=== PATIENT | female | born 1975 | race Caucasian/White ===

== ENCOUNTER 2017-09-16 07:40 | Emergency (ER) | payer MEDICAID ==
[~2017-09-16] VITALS: Ht 162.6 cm; Wt 65.0 kg
[~2017-09-16 07:40] MED LIST: AMIT25TA9 PO; MECL-127 PO; ONDA4TAB5 PO
[2017-09-16] MEDS ORDERED: ONDANSETRON HCL 4MG/2ML VIAL IV STA (08:36)
[2017-09-16] MEDS ORDERED: KETOROLAC 30MG/ML VIAL IV STA (08:36)
[2017-09-16] MEDS ORDERED: SODIUM CHLORIDE 0.9% 1,000 ML IV ONE (08:36)
[2017-09-16 09:02] LABS: BASOPHILS % 0.4 % (0.0-2.0); EOSINOPHILS % 0.8 % (0.0-5.0); HEMATOCRIT. 39.5 % (36.0-48.0); HEMOGLOBIN. 13.3 g/dL (12.0-16.0); LYMPHOCYTES % 8.6 % (20.0-50.0); MEAN CORPUSCULAR HEMOGLOBIN 29.9 pg (28.0-32.0); MEAN CORPUSCULAR VOLUME 88.8 fL (81.0-99.0); NEUTROPHILS % 85.2 % (40.0-76.0); PLATELET 256 x1000/uL (130-400); RED BLOOD CELL COUNT 4.44 mill/uL (4.2-5.4); RED CELL DISTRIBUTION WIDTH 13.1 % (11.6-14.6)
[2017-09-16 09:02] LABS: CLARITY URINE CLOUDY (CLEAR); COLOR URINE YELLOW (YELLOW); KETONES URINE TRACE (NEGATIVE); LEUKOCYTE ESTERASE URINE TRACE (NEGATIVE); NITRITE URINE NEGATIVE (NEGATIVE); OCCULT BLOOD URINE 3+ (NEGATIVE); PROTEIN URINE TRACE (NEGATIVE); SPECIFIC GRAVITY URINE 1.026 (1.005-1.030); UROBILINOGEN URINE 0.2 E.U./dL (0.2-1.0)
[2017-09-16 09:06] LABS: CHLORIDE 106 mEq/L (98-107)
[2017-09-16 09:30] LABS: HCG SCREEN NEGATIVE
[2017-09-16 11:41] VITALS: BP 99/63
== END 2017-09-16 11:47 | disposition home or self-care (01) ==
LOC: ER 07:58
DX: N39.0 Urinary tract infection, site not specified (principal); R11.2 Nausea with vomiting, unspecified
CPT/HCPCS: 36415; 71045; 80053; 81003; 83690; 84703; 85025; 87804; 96361; 96374; 96375; 99285; J1885; J2405; J7030; Z7610

== ENCOUNTER 2018-01-24 07:22 | Emergency (ER) | payer SELFPAY ==
[~2018-01-24] VITALS: Ht 160 cm; Wt 53.0 kg
[2018-01-24] MEDS ORDERED: KETOROLAC 30MG/ML VIAL IV ONE (08:15)
[2018-01-24] MEDS ORDERED: METOCLOPRAMIDE HCL 10MG/2ML VIAL IV ONE (08:15)
[2018-01-24] MEDS ORDERED: SODIUM CHLORIDE 0.9% 1,000 ML IV ONE (08:15)
[2018-01-24 08:26] LABS: BASOPHILS % 0.7 % (0.0-2.0); EOSINOPHILS % 1.6 % (0.0-5.0); HEMATOCRIT. 35.3 % (36.0-48.0); HEMOGLOBIN. 11.9 g/dL (12.0-16.0); LYMPHOCYTES % 31.6 % (20.0-50.0); MEAN CORPUSCULAR HEMOGLOBIN 30.2 pg (28.0-32.0); MEAN CORPUSCULAR VOLUME 89.9 fL (81.0-99.0); MEAN PLATELET VOLUME 7.2 fl (7.4-10.4); MONOCYTES % 7.3 % (2.0-8.0); NEUTROPHILS % 58.8 % (40.0-76.0); PLATELET 249 x1000/uL (130-400); RED BLOOD CELL COUNT 3.92 mill/uL (4.2-5.4); RED CELL DISTRIBUTION WIDTH 12.8 % (11.6-14.6)
[2018-01-24 08:29] LABS: CHLORIDE 106 mEq/L (98-107)
[2018-01-24 08:34] LABS: HCG SCREEN NEGATIVE
[2018-01-24 08:39] LABS: CLARITY URINE CLEAR (CLEAR); COLOR URINE YELLOW (YELLOW); KETONES URINE NEGATIVE (NEGATIVE); LEUKOCYTE ESTERASE URINE TRACE (NEGATIVE); NITRITE URINE NEGATIVE (NEGATIVE); OCCULT BLOOD URINE 1+ (NEGATIVE); PROTEIN URINE NEGATIVE (NEGATIVE); SPECIFIC GRAVITY URINE 1.008 (1.005-1.030); UROBILINOGEN URINE 0.2 E.U./dL (0.2-1.0)
[2018-01-24 09:46] LABS: *AMPHETAMINES SCREEN URINE NEGATIVE (NEGATIVE); *COCAINE SCREEN URINE NEGATIVE (NEGATIVE)
[2018-01-24 09:47] LABS: *BENZODIAZEPINES SCREEN URINE NEGATIVE (NEGATIVE)
[2018-01-24 09:50] LABS: *BARBITURATES SCREEN URINE NEGATIVE (NEGATIVE)
[2018-01-24 09:51] LABS: CANNABINOID URINE SCREEN NEGATIVE (NEGATIVE); METHADONE URINE SCREEN NEGATIVE (NEGATIVE)
[2018-01-24 09:52] LABS: OPIATES URINE SCREEN NEGATIVE (NEGATIVE)
[2018-01-24 09:56] LABS: PHENCYCLIDINE URINE SCREEN NEGATIVE (NEGATIVE)
[2018-01-24 12:00] VITALS: BP 112/80
== END 2018-01-24 12:10 | disposition home or self-care (01) ==
LOC: ER 08:26
DX: G43.909 Migraine, unspecified, not intractable, without status migrainosus (principal); Z90.49 Acquired absence of other specified parts of digestive tract
CPT/HCPCS: 36415; 70450; 80048; 80305; 81003; 81025; 84703; 85025; 96361; 96374; 96375; 99285; J1885; J2765; J7030; Z7610

== ENCOUNTER 2019-05-21 08:05 | Emergency (ER) | payer SELFPAY ==
[~2019-05-21] VITALS: Ht 157.5 cm; Wt 56.0 kg
[2019-05-21] MEDS ORDERED: ACETAMINOPHEN 325MG TABLET PO ONE (11:15)
[2019-05-21 11:33] VITALS: BP 110/67
[2019-05-21] MEDS ORDERED: KETOROLAC 30MG/ML VIAL IM ONE (12:30)
== END 2019-05-21 13:14 | disposition home or self-care (01) ==
LOC: ER 08:08
DX: J10.1 Influenza due to other identified influenza virus with other respiratory manifestations (principal); G43.909 Migraine, unspecified, not intractable, without status migrainosus; M79.10 Myalgia, unspecified site; Z90.49 Acquired absence of other specified parts of digestive tract; Z79.899 Other long term (current) drug therapy
CPT/HCPCS: 71045; 87804; 99284

== ENCOUNTER 2020-03-14 22:26 | Emergency (ER) | payer SELFPAY ==
[~2020-03-14] VITALS: Ht 160 cm; Wt 54.0 kg
[2020-03-14] MEDS: ONDANSETRON HCL 4MG/2ML INJ IV STA (23:25)
[2020-03-14] MEDS: SODIUM CHLORIDE 0.9% 1,000 ML IV ONE (23:25)
[2020-03-14] MEDS: MORPHINE SULFATE 4 MG/ML CPJ (NOT FOR IM USE) IV STA (23:25)
[2020-03-14 23:41] LABS: BASOPHILS % 0.5 % (0.0-2.0); EOSINOPHILS % 1.2 % (0.0-5.0); HEMOGLOBIN. 12.8 g/dL (12.0-16.0); LYMPHOCYTES % 32.5 % (20.0-50.0); MEAN CORPUSCULAR HEMOGLOBIN 30.1 pg (28.0-32.0); MEAN CORPUSCULAR VOLUME 89.7 fL (81.0-99.0); MEAN PLATELET VOLUME 7.2 fl (7.4-10.4); MONOCYTES % 8.2 % (2.0-8.0); NEUTROPHILS % 57.6 % (40.0-76.0); PLATELET 254 x1000/uL (130-400); RED BLOOD CELL COUNT 4.24 mill/uL (4.2-5.4); RED CELL DISTRIBUTION WIDTH 13.2 % (11.6-14.6)
[2020-03-15] LABS: CHLORIDE 105 mEq/L (98-107); ETHANOL BLOOD < 10 mg/dL
[2020-03-15 00:14] LABS: CLARITY URINE CLEAR (CLEAR); COLOR URINE YELLOW (YELLOW); KETONES URINE NEGATIVE (NEGATIVE); LEUKOCYTE ESTERASE URINE NEGATIVE (NEGATIVE); NITRITE URINE NEGATIVE (NEGATIVE); OCCULT BLOOD URINE NEGATIVE (NEGATIVE); PH URINE 5.5 (4.5-8.0); PROTEIN URINE NEGATIVE (NEGATIVE); SPECIFIC GRAVITY URINE 1.009 (1.005-1.030); UROBILINOGEN URINE 0.2 E.U./dL (0.2-1.0)
[2020-03-15 01:24] LABS: *AMPHETAMINES SCREEN URINE NEGATIVE (NEGATIVE); *BARBITURATES SCREEN URINE NEGATIVE (NEGATIVE); *BENZODIAZEPINES SCREEN URINE NEGATIVE (NEGATIVE); *COCAINE SCREEN URINE NEGATIVE (NEGATIVE); CANNABINOID URINE SCREEN NEGATIVE (NEGATIVE); METHADONE URINE SCREEN NEGATIVE (NEGATIVE); OPIATES URINE SCREEN NEGATIVE (NEGATIVE); PHENCYCLIDINE URINE SCREEN NEGATIVE (NEGATIVE)
[2020-03-15 03:54] VITALS: BP 106/65
[2020-03-15] MEDS ORDERED: IOHEXOL-300 100 ML BOTTLE ONE (05:22)
== END 2020-03-15 04:17 | disposition home or self-care (01) ==
LOC: ER 22:26
DX: D21.9 Benign neoplasm of connective and other soft tissue, unspecified (principal); N83.209 Unspecified ovarian cyst, unspecified side; I49.9 Cardiac arrhythmia, unspecified; Z90.49 Acquired absence of other specified parts of digestive tract
CPT/HCPCS: 36415; 74177; 76830; 76856; 80053; 80305; 80320; 81003; 81025; 85025; 93005; 96361; 96374; 96375; 99285; J2270; J2405; J7030; Q9967; G0480

== ENCOUNTER 2020-06-15 06:16 | Emergency (ER) | payer MEDICAID ==
[~2020-06-15] VITALS: Ht 157.5 cm; Wt 58.0 kg
[2020-06-15] MEDS ORDERED: ONDANSETRON HCL 4MG/2ML INJ IV STA (06:59)
[2020-06-15] MEDS ORDERED: SODIUM CHLORIDE 0.9% 1,000 ML IV ONE (07:00)
[2020-06-15] MEDS ORDERED: MECLIZINE 25MG TABLET PO ONE (07:00)
[2020-06-15 07:56] LABS: KETONES URINE NEGATIVE (NEGATIVE); LEUKOCYTE ESTERASE URINE TRACE (NEGATIVE); NITRITE URINE NEGATIVE (NEGATIVE); OCCULT BLOOD URINE NEGATIVE (NEGATIVE); PH URINE 5.5 (4.5-8.0); PROTEIN URINE NEGATIVE (NEGATIVE); SPECIFIC GRAVITY URINE 1.012 (1.005-1.030); UROBILINOGEN URINE 0.2 E.U./dL (0.2-1.0)
[2020-06-15 07:58] LABS: CLARITY URINE HAZY (CLEAR); COLOR URINE PALE YELLOW (YELLOW)
[2020-06-15 08:01] LABS: BASOPHILS % 0.6 % (0.0-2.0); EOSINOPHILS % 0.9 % (0.0-5.0); HEMATOCRIT. 40.5 % (36.0-48.0); HEMOGLOBIN. 13.4 g/dL (12.0-16.0); LYMPHOCYTES % 19.3 % (20.0-50.0); MEAN CORPUSCULAR HEMOGLOBIN 29.9 pg (28.0-32.0); MEAN CORPUSCULAR VOLUME 90.3 fL (81.0-99.0); MEAN PLATELET VOLUME 6.8 fl (7.4-10.4); MONOCYTES % 5.1 % (2.0-8.0); NEUTROPHILS % 74.1 % (40.0-76.0); PLATELET 296 x1000/uL (130-400); RED BLOOD CELL COUNT 4.48 mill/uL (4.2-5.4)
[2020-06-15 08:08] LABS: CHLORIDE 107 mEq/L (98-107)
[2020-06-15 09:30] VITALS: BP 118/78
[2020-06-15] MEDS ORDERED: ONDA4TAB5 MT ×2 (10:27)
== END 2020-06-15 10:47 | disposition home or self-care (01) ==
LOC: ER 06:16
DX: H81.399 Other peripheral vertigo, unspecified ear (principal); Z90.49 Acquired absence of other specified parts of digestive tract
CPT/HCPCS: 36415; 70450; 80053; 81003; 81025; 85025; 93005; 96361; 96374; 99285; J2405; J7030; J8597

== ENCOUNTER 2021-09-23 13:52 | Emergency (ER) | payer MEDICAID ==
[~2021-09-23] VITALS: Ht 165.1 cm; Wt 63.0 kg
[~2021-09-23 13:52] MED LIST changes: +ONDA4TAB5 MT
[2021-09-23 15:06] LABS: BASOPHILS % 0.7 % (0.0-2.0); EOSINOPHILS % 0.6 % (0.0-5.0); HEMATOCRIT. 36.4 % (36.0-48.0); HEMOGLOBIN. 12.2 g/dL (12.0-16.0); LYMPHOCYTES % 27.9 % (20.0-50.0); MEAN CORPUSCULAR HEMOGLOBIN 29.6 pg (28.0-32.0); MEAN CORPUSCULAR VOLUME 87.9 fL (81.0-99.0); MEAN PLATELET VOLUME 6.7 fl (7.4-10.4); MONOCYTES % 7.9 % (2.0-8.0); NEUTROPHILS % 62.9 % (40.0-76.0); PLATELET 348 x1000/uL (130-400); RED BLOOD CELL COUNT 4.14 mill/uL (4.2-5.4)
[2021-09-23 15:14] LABS: CHLORIDE 107 mEq/L (98-107)
[2021-09-23 15:27] LABS: CLARITY URINE CLOUDY (CLEAR); COLOR URINE YELLOW (YELLOW); KETONES URINE TRACE (NEGATIVE); LEUKOCYTE ESTERASE URINE NEGATIVE (NEGATIVE); NITRITE URINE NEGATIVE (NEGATIVE); OCCULT BLOOD URINE NEGATIVE (NEGATIVE); PROTEIN URINE TRACE (NEGATIVE); SPECIFIC GRAVITY URINE 1.039 (1.005-1.030); UROBILINOGEN URINE 0.2 E.U./dL (0.2-1.0)
[2021-09-23] MEDS ORDERED: MORPHINE SULFATE 4 MG/ML CPJ (NOT FOR IM USE) IV STA (21:21)
[2021-09-23] MEDS ORDERED: DOCU-15 MT (23:15)
[2021-09-23] MEDS ORDERED: FEO RC (23:15)
[2021-09-24] MEDS ORDERED: ONDANSETRON HCL 4MG/2ML INJ IV PRN (00:15)
[2021-09-24 00:17] VITALS: BP 129/60
== END 2021-09-24 00:24 | disposition home or self-care (01) ==
LOC: ER 15:20
DX: R10.9 Unspecified abdominal pain (principal); K59.00 Constipation, unspecified; Z90.49 Acquired absence of other specified parts of digestive tract
CPT/HCPCS: 36415; 74176; 80053; 81003; 83690; 85025; 96374; 99284; J2270; J2405